=== PATIENT | male | born 1960 | race African-American/Black ===

== ENCOUNTER 2024-07-10 13:58 | Emergency (ER) | payer MEDICARE, OTHER ==
[~2024-07-10] VITALS: Ht 177.8 cm; Wt 146.3 kg
--- NOTE | 2024-07-10 14:08 | ED.PDOC ---
Psychiatric HPI Comments 64 year old male WOJCIECH presents to the ED with chief complaint of hallucinations. EMS reports patient is coming from [facility] for a concern of auditory hallucinations the patient has been having for the past 2 days. Patient relays that the voices tell him random things, however, he notes he is not being told to harm himself or others. Patient denies any SI, HI, chest pain, SOB, abdominal pain, fever, or chills. Time Seen by MD: 14:04 Reviewed Notes: Nurses Notes, Operations Support Coordinator Notes, Medications, Allergies Information Source: Patient, Emergency Med Personnel Mode of Arrival: EMS Severity: Unable to Care for Self, Able to Control Self Severity of Pain: None Severity of Mental Status: Mild Severity of Symptoms: Mild Timing: Days Duration: Since onset Prehospital treatment: None Presents with: Other (Auditory hallucinations) Ingestion: None Circumstance: Medical Clearance Current substance abuse: None Stressors: None History of: Bipolar Associated signs and symptoms: Hallucinations Past Medical History PAST MEDICAL HISTORY: AFIB, CHF, CKF, HTN Past Medical History (Other): Bipolar Surgical History (Other): Bilateral toe surgery Family History Family History: Reviewed,noncontributory to illness, Family hx of HTN, Family hx of liver ezio Social History Smoker: Non-Smoker Alcohol: Denies ETOH Use Drugs: Denies Drug Use Lives In: Home Constitutional: denies: chills, diaphoresis, fatigue, fever, malaise, sweats, weakness, others EENTM: denies: blurred vision, double vision, ear bleeding, ear discharge, ear drainage, ear pain, ear ringing, eye pain, eye redness, hearing loss, mouth pain, mouth swelling, nasal discharge, nose bleeding, nose congestion, nose pain, photophobia, tearing, throat pain, throat swelling, voice changes, others Respiratory: denies: cough, hemoptysis, orthopnea, SOB at rest, shortness of breath, SOB with excertion, stridor, wheezing, others Cardiovascular: denies: chest pain, dizzy spells, diaphoresis, Dyspnea on exertion, edema, irregular heart beat, left arm pain, lightheadedness, palpitations, PND, syncope, others Gastrointestinal: denies: abdomen distended, abdominal pain, blood streaked bowels, constipated, diarrhea, dysphagia, difficulty swallowing, hematemesis, melena, nausea, poor appetite, poor fluid intake, rectal bleeding, rectal pain, vomiting, others Genitourinary: denies: burning, dysuria, flank pain, frequency, hematuria, incontinence, penile discharge, penile sore, pain, testicle pain, testicle swelling, urgency, others Neurological: denies: dizziness, fainting, headache, left sided numbness, left sided weakness, numbness, paresthesia, pre-existing deficit, right sided numbness, right sided weakness, seizure, speech problems, tingling, tremors, weakness, others Musculoskeletal: denies: back pain, gout, joint pain, joint swelling, muscle pain, muscle stiffness, neck pain, others Integumetry: denies: bruises, change in color, change in hair/nails, dryness, laceration, lesions, lumps, rash, wounds, others Allergic/Immunocompromised: denies: Difficulty Healing, Frequent Infections, Hives, Itching, others Hematologic/Lymphatic: denies: anemia, blood clots, easy bleeding, easy bruising, swollen glands, others Endocrine: denies: excessive hunger, excessive sweating, excessive thirst, excessive urination, flushing, intolerance to cold, intolerance to heat, unexplained weight gain, unexplained weight loss, others Psychiatric: reports: others (Auditory hallucinations); denies: anxiety, bipolar disorder, depression, hopeless, panic disorder, schizophrenia, sleepless, suicidal All Other Systems: Reviewed and Negative Physical Exam General Appearance: No Apparent Distress HEENT: Normal ENT Inspection, Pharynx Normal, TMs Normal Neck: Full Range of Motion, Non-Tender, Normal, Normal Inspection Respiratory: Chest Non-Tender, Lungs Clear, No Accessory Muscle Use, No Respiratory Distress, Normal Breath Sounds Cardiovascular: No Edema, No JVD, No Murmur, No Gallop, Normal Peripheral Pulses, Regular Rate/Rhythm Breast Exam: Deferred Gastrointestinal: No Organomegaly, Non Tender, No Pulsatile Mass, Normal Bowel Sounds, Soft Genitalia: Deferred Pelvic: Deferred Rectal: Deferred Extremities: No calf tenderness, Normal capillary refill, No pedal edema Musculoskeletal : Apperance: Normal Neurologic: Alert, tripper II-XII nml as Tested, Motor Weakness, Normal Affect, Normal Mood, No Sensory Deficits Cerebellar Function: Normal Reflexes: Normal Skin: Dry, Normal Color, Warm Lymphatic: No Adenopathy Was a procedure done? Was a procedure done?: No Psych Differential Dx Psych. Differential Dx: Bipolar Disorder, Schizoprenia X-Ray, Labs, Meds, VS Vital Signs Date Time Temp Pulse Resp B/P (MAP) Pulse Ox O2 Delivery O2 Flow Rate FiO2 07/10/24 14:13 98.1 93 18 113/78 (90) 98 98.1 Lab Test 07/10/24 18:24 07/10/24 14:25 Range/Units Urine Color Yellow Yellow Urine Clarity Turbid H Clear Urine pH 7.0 5.0-9.0 Urine Specific [place] 1.013 1.001-1.035 Urine Protein Negative Negative Urine Ketones Negative Negative Urine Blood Negative Negative /uL Urine Nitrite 2+ H Negative Urine Bilirubin Negative Negative Urine Urobilinogen 8 H Negative mg/dL Urine Leukocyte Esterase 1+ Negative /uL Urine RBC 5 0 - 3 /hpf Urine Microscopic WBC 11 H 0-3 /HPF Urine Squamous Epithelial Cells Few <5 /hpf Urine Bacteria Few H None Seen /hpf Urine Glucose Normal Normal mg/dL Urine Opiates Screen Pos NEGATIVE Urine Fentanyl Screen Neg NEGATIVE Urine Barbiturates Screen Neg NEGATIVE Urine Phencyclidine Screen Neg NEGATIVE Urine Amphetamines Screen Neg NEGATIVE Urine Benzodiazepines Screen Neg NEGATIVE Urine Cocaine Screen Neg NEGATIVE Urine Cannabinoids Screen Neg NEGATIVE White Blood Count 5.5 4.4-10.8 10^3/uL Red Blood Count 4.54 4.5-5.90 10^6/uL Hemoglobin 11.8 L 13.5-17.5 g/dL Hematocrit 36.8 L 41.0-53.0 % Mean Corpuscular Volume 80.9 80.0-100.0 fL Mean Corpuscular Hemoglobin 25.9 L 28.0-32.0 pg Mean Corpuscular Hemoglobin Concent 32.0 32.0-36.0 g/dL Red Cell Distribution Width 17.6 H 11.8-14.3 % Platelet Count 237 140-450 10^3/uL Mean Platelet Volume 6.7 L 6.9-10.8 fL Neutrophils (%) (Auto) 68.1 37.0-80.0 % Lymphocytes (%) (Auto) 18.4 10.0-50.0 % Monocytes (%) (Auto) 11.4 0.0-12.0 % Eosinophils (%) (Auto) 1.7 0.0-7.0 % Basophils (%) (Auto) 0.4 0.0-2.0 % Neutrophils # (Auto) 3.7 1.6-8.6 10 ^3/uL Lymphocytes # (Auto) 1.0 0.4-5.4 10 ^3/uL Monocytes # (Auto) 0.6 0-1.3 10 ^3/uL Eosinophils # (Auto) 0.1 0-0.8 10 ^3/uL Basophils # (Auto) 0 0-0.2 10 ^3/uL Nucleated Red Blood Cells 0.1 % Sodium Level 137 136-145 mmol/L Potassium Level 3.8 3.5-5.1 mmol/L Chloride Level 100 98-107 mmol/L Carbon Dioxide Level 32 H 20-31 mmol/L Anion Gap 5 5-15 Blood Urea Nitrogen 15 9-23 mg/dL Creatinine 1.23 0.700-1.30 mg/dL Glomerular Filtration Rate Calc 66 >90 mL/min BUN/Creatinine Ratio 12.2 10.0-20.0 Serum Glucose 116 H 74-106 mg/dL Calcium Level 9.4 8.7-10.4 mg/dL Current Medications Medications (Trade) Dose Ordered Sig/Kelvin Route Start Time Stop Time Status Last Admin Ciprofloxacin (Cipro Tablet) 500 mg ONCE ONCE PO 07/10/24 21:15 07/10/24 21:16 DC 07/10/24 21:46 The patient's CBC is within normal limits The chemistry panel is within normal limits The urine tox is positive for opiates The urine test is positive for a slight UTI The patient was given Cipro 500 mg by mouth The patient was being discharged with a diagnosis of UTI The patient will return to the emergency department's the condition worsens The patient has a telemedicine psych consult The patient is being started on medications per the psychiatrist Time of 1ST Reevaluation: 21:22 Reevaluation 1ST: Unchanged Time of 2ND Reevaluation: 21:22 Reevaluation 2ND: Improved Patient Education/Counseling: Diagnosis, Treatment, Prognosis, Need For Follow Up Family Education/Counseling: No Family Present Additional Information -Reviewed patient's previous visit(s): None - The following tests were ordered, and results were reviewed by me: CBC, BMP, UDS, UA - Additional information was gathered from interviewing the following independent Historian: EMS - I reviewed and agreed with the following test results read by other provider: None - I discussed treatments and results with medical personnel and: patient Comprehensive systems review obtained and negative except for what is stated in the HPI. Departure 1 Departure Time of Disposition: 21:22 Impression: Primary Impression: Auditory hallucinations Additional Impression: UTI (urinary tract infection) Qualified Codes: N30.00 - Acute cystitis without hematuria Disposition: HOME / SELF CARE / HOMELESS Condition: Fair e-Prescriptions Olanzapine (OLANZAPINE) 2.5 Mg Tab 2.5 MG PO QHSP PRN for 10 Days, #10 TAB Prov: DEQUAN HAQUE MD 07/10/24 Ciprofloxacin Hcl (Cipro) 500 Mg Tab 1 TAB PO BID, #14 TAB Prov: DEQUAN HAQUE MD 07/10/24 Discharged With: Self Critical Care Note Critical Care Time?: No Stability Stability form required: No Heart Score Heart Score: Heart Score Response (Comments) Value History N/A 0 EKG N/A 0 Age N/A 0 Risk Factors N/A 0 Troponin N/A 0 Total 0 I personally scribed for DEQUAN HAQUE MD ([email or web address]) on 07/10/24 at 14:08. Electronically submitted by Phillip Irwin ([email or web address]). I personally scribed for DEQUAN HAQUE MD ([email or web address]) on 07/10/24 at 14:12. Electronically submitted by Phillip Irwin ([email or web address]). DEQUAN HAQUE MD Jul 10, 2024 14:08
[2024-07-10 14:39] LABS: Basophils # (auto) 0 10 ^3/uL (0-0.2); Basophils % (auto) 0.4 % (0.0-2.0); Eosinophils # (auto) 0.1 10 ^3/uL (0-0.8); Eosinophils % (auto) 1.7 % (0.0-7.0); Hematocrit 36.8 % (41.0-53.0); Hemoglobin 11.8 g/dL (13.5-17.5); Lymphocytes % (auto) 18.4 % (10.0-50.0); Mean Corpuscular Hemoglobin 25.9 pg (28.0-32.0); Mean Corpuscular Volume 80.9 fL (80.0-100.0); Monocytes # (auto) 0.6 10 ^3/uL (0-1.3); Monocytes % (auto) 11.4 % (0.0-12.0); Neutrophils # (auto) 3.7 10 ^3/uL (1.6-8.6); Neutrophils % (auto) 68.1 % (37.0-80.0); Nucleated Red Blood Cells % 0.1 %; Platelet Count (auto) 237 10^3/uL (140-450); Red Blood Cells 4.54 10^6/uL (4.5-5.90); Red Cell Distribution Width 17.6 % (11.8-14.3); White Blood Cell 5.5 10^3/uL (4.4-10.8)
[2024-07-10 14:46] LABS: Chloride 100 mmol/L (98-107); Potassium 3.8 mmol/L (3.5-5.1); Sodium 137 mmol/L (136-145)
[2024-07-10 14:47] LABS: Anion Gap 5 (5-15)
[2024-07-10 14:48] LABS: Calcium 9.4 mg/dL (8.7-10.4); Carbon Dioxide 32 mmol/L (20-31)
[2024-07-10 14:52] LABS: BUN/Creatinine Ratio 12.2 (10.0-20.0); Blood Urea Nitrogen 15 mg/dL (9-23)
[2024-07-10 14:53] LABS: Glucose 116 mg/dL (74-106)
[2024-07-10 18:50] LABS: Urine Bacteria FEW /hpf (None Seen); Urine Blood Negative /uL (Negative); Urine Clarity Turbid (Clear); Urine Color Yellow (Yellow); Urine Protein, UAD Negative (Negative); Urine Specific Gravity 1.013 (1.001-1.035); Urine Squamous Epithelial Cell FEW /hpf (<5); Urine Urobilinogen 8 mg/dL (Negative); Urine WBC 11 /HPF (0-3)
[2024-07-10 18:54] LABS: Opiate Scree,Urine Pos (NEGATIVE)
[2024-07-10 18:56] LABS: Amphetamine Screen, Urine Neg (NEGATIVE); Barbiturate Scree,Urine Neg (NEGATIVE); Benzodiazephine Screen, Urine Neg (NEGATIVE); Cannabinoid Screen, Urine Neg (NEGATIVE); Cocaine Screen, Urine Neg (NEGATIVE); Phencyclidine Screen, Urine Neg (NEGATIVE)
--- NOTE | 2024-07-10 21:11 | DVHINCON2 ---
Date of Service if different f: Jul 10, 2024 Time of Service: 21:11 Consult Consult Note PSYCHIATRY ED NEW CONSULT HPI: 64 yo M pt with no known PPH presents to ED BIBA for safety, psychiatric stabilization and possible med initiation in setting of NC/NT VH. Psychiatry consulted for safety evaluation and recommendations in context of current presentation Per pt, reports seeing bugs on wall and other vague VH of animals or shadows for past several days although reports hx of AVH on/off for several years. Reports minimal interference with daily functioning. Denies depressed mood, hopelessness, helplessness, isolation, negative thoughts, loss of interest, or anhedonia. Denies anxiety/panic/OCD/PTSD symptoms. Sleep/appetite/energy/conc relatively WNL. Adamantly denies SI/HI. Denies AH/paranoia/catatonic/personality changes. No overt manic, psychotic, major depressive, cognitive, dissociative phenomena, panic, or somatic symptoms noted. Denies acute psychosocial stressors. Pt currently does not have psychiatrist/therapist out in community although has sought outpt MH services in remote past. Currently not on any psychotropic agents. Hx of psych med trials although cannot recall specific details Denies ETOH, THC or IDU Never , several children but limited contact, unemployed/ssi, resides at [facility] for past several weeks, no legal issues, some support system noted (immediate family). Unknown trauma hx. Unknown FH No acute medical issues although with chronic medical issues. No hx of seizures/TBI, or recent head injuries or falls, NKDA Does not have hx of suicide attempts/SIB/PSG, or prior psych hospitalizations/5150. Denies history of violence, unprovoked aggression, or assaultive behaviors. Denies recent hx of impulsivity, attention seeking behaviors, anger outbursts, emotional dysregulation, mood reactivity or engaging in risky behaviors. Does not have access to firearms. Currently denies SI/HI. No safety concerns noted during encounter. MSE: General Appearance/Behavior: Alert and awake; appears stated age, overweight, marginal fair grooming and hygiene; calm and cooperative, fair eye contact, no PMA/PMR Speech: coherent, slightly dysarthric Thought Process: linear, logical, concrete Thought Content: Abnormal Thoughts and Perceptions: None Homicidality / Violent Thoughts: None Suicidality: adamantly denies SI Hallucinations: +VH Delusions: denies paranoia, persecutory, or grandiose delusions Obsessions /compulsions : None Judgment and Insight: marginal/fair/limited Mood & Affect: "good" with mood-congruent, appropriate Orientation: oriented to person, place, time Attention/Concentration: appears intact Memory: grossly intact Language: no unusual or inappropriate language Assessment: 64 yo M pt with no known PPH presents to ED BIBA for safety, psychiatric stabilization and possible med initiation in setting of NC/NT VH. Currently denies SI/HI. No hx of SI/SA/SIB or prior psych hospitalizations is reassuring. Pt medically cleared although noted to have mild UTI. Pts presenting MH symptoms maybe 2/2 UTI and in context of multiple chronic medical issues vs unspecified psychotic disorder Presently, pt does not show any signs of immediate danger to self or others that would warrant a higher level of care. Thus, pt does not meet criteria for 5150 or involuntary inpatient psych admission as is not DTS, DTO or GD. No acute safety concerns noted. Pt currently does not have psychiatrist/therapist out in community Recommend discharging pt on olanzapine to address psychotic symptoms that have been exacerbated prior to this admission Primary Diagnosis: Psychotic disorder unspecified Plan: Does not warrant involuntary inpatient psychiatric hospitalization or 5150 hold at this time No acute safety concerns Pt can be safely discharged back to current residence Recommend d/c pt on Olanzapine 2.5 mg qhs x 10 days Risks/benefits/alternative treatments discussed, informed consent provided by pt Supportive tx provided Encouraged mindfulness techniques (reading, walking, meditation, journaling, exercise, deep breathing) during times of stress Instructed pt to call [phone] or return to ED if mood symptoms worsen or new onset SI/HI upon discharge Pt verbalized understanding and is receptive to above tx plan This case was discussed with ED nurse/provider and all parties in agreement with above tx plan Juanpablo Delong MD Plan discussed with: Patient JUANPABLO DELONG MD Jul 10, 2024 21:11
[2024-07-10] MEDS ORDERED: CIPR-173 PO (21:23)
[2024-07-10] MEDS: CIPROFLOXACIN HCL 500 MG TAB PO ONE (21:46)
[2024-07-10] MEDS ORDERED: OLAN2.5T38 PO (21:50)
[2024-07-11 05:41] VITALS: PULSE 81; RESP 20; O2SAT 98
[2024-07-11 07:30] VITALS: PULSE 108; RESP 22; O2SAT 96
[2024-07-11 10:00] VITALS: TEMP 97.9
[2024-07-11 15:15] VITALS: BP 130/72; PULSE 78; RESP 18; O2SAT 98
== END 2024-07-11 15:38 | disposition home or self-care (01) ==
LOC: ER 13:58 → EDBD 13:58 → ER 07-11 15:38
DX: R44.0 Auditory hallucinations (principal); N39.0 Urinary tract infection, site not specified; I48.91 Unspecified atrial fibrillation; I11.0 Hypertensive heart disease with heart failure; I50.9 Heart failure, unspecified; F31.9 Bipolar disorder, unspecified; Z98.890 Other specified postprocedural states
CPT/HCPCS: 36415; 80048; 80307; 81001; 85025